=== PATIENT | male | born 1995 | race Caucasian/White ===

== ENCOUNTER 2016-11-09 23:05 | Emergency (ER) | payer OTHER ==
[2016-11-09] MEDS ORDERED: NS 0.9% 1000 ML* 2,000 ML IV ONE (23:38)
[2016-11-09] MEDS ORDERED: Ketorolac INJ* 30 MG/ML 1 ML VIAL IV PUSH ONE (23:39)
--- NOTE | 2016-11-10 00:18 | ED ---
Yuliet Melendez Anna, scribed for Rylan Khan MD on 11/09/16 at 2341 . Complex/Multi-Sys Presentation - HPI Summary HPI Summary: Patient is a 21 y/o male coming to [facility] presenting with gradual onset of intermittent nausea that began two weeks ago. He reports experiencing intermittent emesis, drowsiness, sore throat, and migraines. Robitussin and Nyquil do not alleviate the symptoms. He was last seen at the [facility] his [facility] a few days ago. He reports that he is able to keep down liquids but feels weak and didnt eat anything today. His temperature is 104.4 upon arrival in the ED. - History Of Current Complaint Chief Complaint: EDFever Time Seen by Provider: 11/09/16 23:34 Hx Obtained From: Patient - Allergies/Home Medications Allergies/Adverse Reactions: Allergies Allergy/AdvReac Type Severity Reaction Status Date / Time No Known Allergies Allergy Verified 11/09/16 23:16 PMH/Surg Hx/FS Hx/Imm Hx Previously Healthy: Yes Cardiovascular History: Denies: Hx Hypertension Respiratory History: Denies: Hx Asthma Infectious Disease History: No Infectious Disease History: Denies: Traveled Outside the [place] in Last 30 Days - Family History Known Family History: Positive: Cardiac Disease - Hx grandfather - Social History Occupation: Student Lives: With Family Alcohol Use: None Substance Use Type: Reports: None Smoking Status (MU): Unknown if Ever Smoked Review of Systems Positive: Fever, Other - drowsiness Positive: Sore Throat Positive: Vomiting, Nausea Neurological: Other Positive: Headache - migraines All Other Systems Reviewed And Are Negative: Yes Physical Exam Triage Information Reviewed: Yes Vital Signs On Initial Exam: Initial Vitals Temp Pulse Resp BP Pulse Ox 104.4 F 98 20 137/74 97 11/09/16 23:11 11/09/16 23:11 11/09/16 23:11 11/09/16 23:11 11/09/16 23:11 Vital Signs Reviewed: Yes Appearance: Positive: No Pain Distress, Ill-Appearing - mild Skin: Positive: Warm Head/Face: Positive: Normal Head/Face Inspection Eyes: Positive: EOMI, IVETTE ENT: Positive: Pharynx normal, TMs normal Neck: Positive: Supple Respiratory/Lung Sounds: Positive: Clear to Auscultation, Breath Sounds Present Cardiovascular: Positive: RRR Abdomen Description: Positive: Nontender, Soft Bowel Sounds: Positive: Present Musculoskeletal: Positive: Strength/ROM Intact Neurological: Positive: Sensory/Motor Intact - Siomara Coma Scale Coma Scale Total: 15 Diagnostics - Vital Signs Vital Signs Temp Pulse Resp BP Pulse Ox 11/09/16 23:11 104.4 F 98 20 137/74 97 - Laboratory Result Diagrams: 11/10/16 00:15 11/10/16 00:15 Lab Statement: Any lab studies that have been ordered have been reviewed, and results considered in the medical decision making process. Re-Evaluation - Re-Evaluation First Eval Re-Evaluation Time: 01:32 Change: Improved Comment: Discussed results and plan of care with patient. Patient is agreeable with plan. Complex Multi-Symp Course/Dx Assessment/Plan: Patient is a 21 y/o male coming to [facility] presenting with gradual onset of intermittent nausea that began two weeks ago. He reports experiencing intermittent emesis, drowsiness, sore throat, and migraines. Robitussin and Nyquil do not alleviate the symptoms. He was last seen at the [facility] a few days ago. He reports that he is able to keep down liquids but feels weak and didnt eat anything today. His temperature is 104.4 upon arrival in the ED. Patient was given Toradol. Labs reveal WBC of 14.5, potassium of 2.8, and magnesium of 1.6. Strep test is negative. Monoscreen is negative. Influenza A test is positive. Patient will be discharged home with follow up from PCP. - Diagnoses Provider Diagnoses: Influenza A, Hypokalemia Discharge - Discharge Plan Condition: Guarded Disposition: HOME Patient Education Materials: Hypokalemia (ED), Influenza (ED) Forms: *School Release Referrals: [facility] [Primary Care Provider] - Additional Instructions: Follow up with primary care provider within 48 hours. Return to the emergency department for any new or worsening symptoms. The documentation as recorded by the Yuliet franklin Anna accurately reflects the service I personally performed and the decisions made by me, Rylan Khan MD.
[2016-11-10 00:38] LABS: Hematocrit 43 % (42-52); Hemoglobin 14.6 g/dl (14.0-18.0); Mean Corpuscular HGB Conc 34 g/dl (31-36); Mean Corpuscular Hemoglobin 29 pg (27-31); Mean Corpuscular Volume 84 fL (80-94); Mean Platelet Volume 11 um3 (7.4-10.4); Red Cell Distribution Width 14 % (10.5-15); White Blood Count 14.5 10^3/ul (3.5-10.8)
[2016-11-10 00:43] LABS: Albumin 4.3 g/dL (3.2-5.2); BUN/Creatinine Ratio 8.6 (8-20); Calcium 9.4 mg/dL (8.6-10.3); EGFR African American 133.2 (>60); EGFR Non-African American 103.6 (>60); Globulin 3.6 g/dL (2-4); Magnesium 1.6 mg/dL (1.9-2.7); Potassium 2.8 mmol/L (3.5-5.0); Total Bilirubin 0.6 mg/dL (0.2-1.0); Total Protein 7.9 g/dL (6.4-8.9)
[2016-11-10 01:05] LABS: TSH (Thyroid Stimulating Horm) 0.93 mcIU/mL (0.34-5.60)
[2016-11-10 01:20] LABS: Manual Entry Verification LOR0008; Mono Internal Control QC Line Present
[2016-11-10] MEDS ORDERED: Potassium Chloride LIQUID* 20 MEQ PACKET PO ONE (01:26)
[2016-11-10] MEDS ORDERED: Potassium Chlor TAB* 20 MEQ TAB.ER PO ONE (01:27)
[2016-11-10 02:03] VITALS: BP 127/57
== END 2016-11-10 02:03 | disposition home or self-care (01) ==
LOC: ED 23:05
DX: J11.1 Influenza due to unidentified influenza virus with other respiratory manifestations (principal); E87.6 Hypokalemia
CPT/HCPCS: 36415; 80053; 83605; 83735; 84443; 85025; 86308; 87502; 87651; 96374; 99282; A9270-GY; J1885